=== PATIENT | female | born 1970 | race Caucasian/White ===

== ENCOUNTER 2019-12-11 21:08 | Emergency (ER) | payer BC ==
[~2019-12-11] VITALS: Ht 177.8 cm; Wt 127.0 kg
[~2019-12-11 21:08] MED LIST: AMOX500 PO; ASPI325EC PO; CYCL10 PO; DICL75ER PO; HYDACE5 PO; HYDR1TAB94 PO; IBUP200; IBUP800 PO; METCAR500 PO; NAPR220 PO; NAPR500 PO; ONDA4ODT MM; OXYACE5T PO; OXYACE7.5T PO; PROM25 PO; ROXICODONE5 MG PO; RXOXYACE PO; SILSUL1TC; SILSUL1TC TOP; SULTRIDS PO; VENL75
[2019-12-11] MEDS ORDERED: HYDROCHLOROTHIA25 MG PO (21:30)
[2019-12-11] MEDS ORDERED: ABAT250V (21:30)
[2019-12-11] MEDS ORDERED: VITAMIN B12 (21:30)
[2019-12-11 21:36] LABS: BASOPHILS ABSOLUTE AUTO 0.03 K/mm3 (0.00-0.23); BASOPHILS PERCENT AUTO 1 % (0-2); EOSINOPHILS ABSOLUTE AUTO 0.13 K/mm3 (0.00-0.68); EOSINOPHILS PERCENT AUTO 2 % (0-6); Hemoglobin 12.8 g/dL (11.5-16.0); IMMATURE GRAN ABSOLUTE AUTO 0.02 K/mm3 (0.00-0.10); IMMATURE GRAN PERCENT AUTO 0 % (0-1); LYMPHOCYTES PERCENT AUTO 22 % (21-46); MONOCYTES ABSOLUTE AUTO 0.48 K/mm3 (0.16-1.47); MONOCYTES PERCENT AUTO 8 % (4-13); Mean Corpuscular HGB 31.4 pg (26.0-34.0); Mean Corpuscular HGB Conc 32.8 g/dL (31.5-36.5); Mean Corpuscular Volume 96 fL (80-100); Mean Platelet Volume 9.8 fL (9.1-12.4); NEUTROPHILS ABSOLUTE AUTO 4.38 K/mm3 (1.96-9.15); NEUTROPHILS PERCENT AUTO 68 % (41-73); Platelet Count 274 K/mm3 (150-400); RDW Coefficient Variation 14.3 % (11.7-14.2); RDW Standard Deviation 49.8 fL (35.1-46.3); Red Blood Cell Count 4.07 M/mm3 (3.80-5.20); White Blood Cell Count 6.44 K/mm3 (4.00-11.30)
[2019-12-11 21:57] LABS: Alanine Aminotransfer (ALT/SGP 19 U/L (12-78); Albumin, Blood 3.4 g/dL (3.4-5.0); Albumin/Globulin Ratio 0.8 (0.8-1.8); Alk Phos 70 U/L (50-136); Anion Gap 5 mmol/L (6-16); Aspartate Aminotrans (AST/SGOT 16 U/L (12-37); Bilirubin, Total 0.3 mg/dL (0.1-1.0); Blood Urea Nitrogen 9 mg/dL (8-24); Bun/Creatinine Ratio 14.8 (12.0-20.0); CO2, Blood 28 mmol/L (21-32); Calcium, Blood 8.5 mg/dL (8.5-10.1); Chloride, Blood 109 mmol/L (98-108); Creatinine, Blood 0.61 mg/dL (0.40-1.00); Glomerular Filtration Rate >60 (60-); Glucose, Blood 95 mg/dL (70-99); Potassium, Blood 3.4 mmol/L (3.5-5.5); Sodium, Blood 142 mmol/L (136-145); Total Protein, Blood 7.4 g/dL (6.4-8.2); Troponin I <0.015 ng/mL (0.000-0.040)
== END 2019-12-12 01:13 | disposition home or self-care (01) ==
LOC: ER 21:08
PROVIDERS: Emergency Medicine
DX: R07.9 Chest pain, unspecified (principal); F32.9 Major depressive disorder, single episode, unspecified; Z88.5 Allergy status to narcotic agent; Z86.2 Personal history of diseases of the blood and blood-forming organs and certain disorders involving the immune mechanism; Z79.899 Other long term (current) drug therapy
CPT/HCPCS: 36415; 71046; 80053; 84484; 85025; 93005; 93010; 99285-25

== ENCOUNTER 2020-01-07 08:48 | Day surgery (SDC) | payer BC ==
[~2020-01-07] VITALS: Ht 180.3 cm; Wt 126.7 kg
[~2020-01-07 08:48] MED LIST changes: +ABAT250V; +HYDROCHLOROTHIA25 MG PO; +VITAMIN B12; +Vitamin D2000 UNIT PO
[2020-01-07] MEDS ORDERED: PANT20 PO (09:25)
== END 2020-01-07 11:15 | disposition home or self-care (01) ==
LOC: ORSCSDS 08:48
PROVIDERS: Student in an Organized Health Care Education/Training Program
PROC: 0DB98ZX Excision of Duodenum, Via Natural or Artificial Opening Endoscopic, Diagnostic (ICD-10-PCS; principal; 2020-01-07 10:15)
PROC: 0DBL8ZX Excision of Transverse Colon, Via Natural or Artificial Opening Endoscopic, Diagnostic (ICD-10-PCS; principal; 2020-01-07 10:15)
PROC: 0DBM8ZX Excision of Descending Colon, Via Natural or Artificial Opening Endoscopic, Diagnostic (ICD-10-PCS; principal; 2020-01-07 10:15)
PROC: 0DB78ZX Excision of Stomach, Pylorus, Via Natural or Artificial Opening Endoscopic, Diagnostic (ICD-10-PCS; principal; 2020-01-07 10:15)
PROC: 0DBH8ZX Excision of Cecum, Via Natural or Artificial Opening Endoscopic, Diagnostic (ICD-10-PCS; principal; 2020-01-07 10:15)
PROC: 0DB48ZX Excision of Esophagogastric Junction, Via Natural or Artificial Opening Endoscopic, Diagnostic (ICD-10-PCS; principal; 2020-01-07 10:15)
DX: D50.9 Iron deficiency anemia, unspecified (principal); K29.70 Gastritis, unspecified, without bleeding; B96.81 Helicobacter pylori [H. pylori] as the cause of diseases classified elsewhere; K31.7 Polyp of stomach and duodenum; D12.0 Benign neoplasm of cecum; D12.3 Benign neoplasm of transverse colon; D12.4 Benign neoplasm of descending colon; K29.80 Duodenitis without bleeding; K57.30 Diverticulosis of large intestine without perforation or abscess without bleeding; K21.9 Gastro-esophageal reflux disease without esophagitis; E66.01 Morbid (severe) obesity due to excess calories; Z68.39 Body mass index [BMI] 39.0-39.9, adult; Z87.891 Personal history of nicotine dependence
CPT/HCPCS: 88305; 88342; J2704; J7120

== ENCOUNTER → 2020-02-18 | Outpatient (CLI) | payer BC ==
[~2020-02-18] MED LIST changes: +PANT20 PO
[2020-02-20 15:01] LABS: CORONAVIRUS (COVID19) CSH-NRL Positive (Negative)
== END | disposition home or self-care (01) ==
LOC: LAB SHORT 15:58 → LAB 15:58
PROVIDERS: Physician Assistant
DX: U07.1 COVID-19 (principal)
CPT/HCPCS: U0003

== ENCOUNTER 2020-06-18 11:47 | Day surgery (SDC) | payer BC ==
[2020-06-17 12:43] LABS: BASOPHILS ABSOLUTE AUTO 0.05 K/mm3 (0.00-0.23); BASOPHILS PERCENT AUTO 1 % (0-2); EOSINOPHILS ABSOLUTE AUTO 0.21 K/mm3 (0.00-0.68); EOSINOPHILS PERCENT AUTO 3 % (0-6); Hematocrit 36.9 % (33.0-51.0); Hemoglobin 12.4 g/dL (11.5-16.0); IMMATURE GRAN ABSOLUTE AUTO 0.01 K/mm3 (0.00-0.10); IMMATURE GRAN PERCENT AUTO 0 % (0-1); LYMPHOCYTES ABSOLUTE AUTO 1.27 K/mm3 (0.84-5.20); LYMPHOCYTES PERCENT AUTO 20 % (21-46); MONOCYTES PERCENT AUTO 8 % (4-13); Mean Corpuscular HGB 33.1 pg (26.0-34.0); Mean Corpuscular HGB Conc 33.6 g/dL (31.5-36.5); Mean Corpuscular Volume 98 fL (80-100); NEUTROPHILS ABSOLUTE AUTO 4.43 K/mm3 (1.96-9.15); NEUTROPHILS PERCENT AUTO 69 % (41-73); Platelet Count 261 K/mm3 (150-400); RDW Coefficient Variation 12.5 % (11.7-14.2); RDW Standard Deviation 45.1 fL (35.1-46.3); Red Blood Cell Count 3.75 M/mm3 (3.80-5.20); White Blood Cell Count 6.47 K/mm3 (4.00-11.30)
[~2020-06-18] VITALS: Ht 177.8 cm; Wt 127.8 kg
[~2020-06-18 11:47] MED LIST changes: -VITAMIN B12; +VITAMIN B12 PO
[2020-06-18] MEDS ORDERED: VITAMIN B COMPLEX (12:18)
--- NOTE | 2020-06-18 12:48 | NUR ---
Ambulatory in Day Surgery History, Chart, Medications and Allergies reviewed before start of procedure. Lungs clear T/O to Auscultation. Patient confirms NPO status and agrees with scheduled surgery. Pre-Op teaching done. Pt verbalizes understanding. Patient States Post-Procedure ride home has been arranged.
--- NOTE | 2020-06-18 17:56 | NUR ---
ARRIVAL TO UNIT PT ARRIVED TO UNIT VIA GURNEY. TRANSFERED TO BED WITH SLIDE ASSIST. PT ORIENTED X4 BUT TIRED. REPORTS PAIN IS TOLERABLE CURRENTLY BUT SHE HAS DISCOMFORT. DENIES NAUSEA. TOLERATING SMALL SIP OF PO FLUID. LAP SITES ARE CDI. NO DRAINAGE SEEN. NO DAPHNE PAD ON ARRIVAL WITH SMALL AMOUNT SANGUINOUS DRAINAGE. PT CLEANED AND NEW DAPHNE PAD IN PLACE. PT TOLERATED ROLLING WELL. K-PAD GIVEN FOR COMFORT, EDUCATED PT ON SPLINTING ABDOMEN WHEN COUGHING. CALL LIGHT IS IN REACH. WILL MONITOR FOR PAIN AND NAUSEA AND GIVE REPORT TO ONCOMING RN.
[2020-06-19 04:47] LABS: BASOPHILS ABSOLUTE AUTO 0.02 K/mm3 (0.00-0.23); BASOPHILS PERCENT AUTO 0 % (0-2); EOSINOPHILS ABSOLUTE AUTO 0.07 K/mm3 (0.00-0.68); EOSINOPHILS PERCENT AUTO 1 % (0-6); Hematocrit 32.2 % (33.0-51.0); Hemoglobin 11.1 g/dL (11.5-16.0); IMMATURE GRAN ABSOLUTE AUTO 0.01 K/mm3 (0.00-0.10); IMMATURE GRAN PERCENT AUTO 0 % (0-1); LYMPHOCYTES ABSOLUTE AUTO 1.47 K/mm3 (0.84-5.20); LYMPHOCYTES PERCENT AUTO 18 % (21-46); MONOCYTES PERCENT AUTO 6 % (4-13); Mean Corpuscular HGB Conc 34.5 g/dL (31.5-36.5); Mean Corpuscular Volume 96 fL (80-100); Mean Platelet Volume 10.4 fL (9.1-12.4); NEUTROPHILS PERCENT AUTO 75 % (41-73); Platelet Count 216 K/mm3 (150-400); RDW Coefficient Variation 12.2 % (11.7-14.2); RDW Standard Deviation 42.5 fL (35.1-46.3); Red Blood Cell Count 3.36 M/mm3 (3.80-5.20); White Blood Cell Count 8.17 K/mm3 (4.00-11.30)
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
[2020-06-19] MEDS ORDERED: DOCU100 PO (11:53)
[2020-06-19] MEDS ORDERED: ESTR2 PO (11:57)
[2020-06-19] MEDS ORDERED: DULCOLAX400 MG/5 M PO (11:58)
[2020-06-19] MEDS ORDERED: Percocet 5-3251 EACH PO (11:59)
[2020-06-19] MEDS ORDERED: PROM25 PO (12:00)
[2020-06-19] MEDS ORDERED: SENN187 PO (12:01)
[2020-06-19] MEDS ORDERED: SIME80CH PO (12:03)
[2020-06-19] MEDS ORDERED: IBUP400 PO (12:04)
== END 2020-06-19 12:40 | disposition home or self-care (01) ==
LOC: ORSCMMR 11:47 → SURS 11:47 → ORD 12:45 → ORSCMMR 12:45 → SURS 17:54 → ORSCMMR 06-19 12:40
PROVIDERS: Obstetrics & Gynecology
DX: N92.1 Excessive and frequent menstruation with irregular cycle (principal); D25.9 Leiomyoma of uterus, unspecified; N80.3 Endometriosis of pelvic peritoneum; D50.9 Iron deficiency anemia, unspecified; F32.9 Major depressive disorder, single episode, unspecified; I10 Essential (primary) hypertension; Z79.899 Other long term (current) drug therapy
CPT/HCPCS: 58573; S2900; 36415; 84702; 85025; 86850; 86900; 86901; 88307; A9270; J0330; J0690; J1885; J2060; J2250; J2405; J2704; J2710; J3010; J7120